=== PATIENT | male | born 1945 | race Caucasian/White ===

== ENCOUNTER 2021-05-06 12:36 | Emergency (ER) | payer MEDICARE, BC ==
[~2021-05-06] VITALS: Ht 185.5 cm; Wt 95.3 kg
--- NOTE | 2021-05-06 13:02 | ED General ---
General Chief Complaint: Cough/Cold/Flu Symptoms Stated Complaint: COVID+ Source of Information: Patient Exam Limitations: No Limitations History of Present Illness Date Seen by Provider: May 06, 2021 Time Seen by Provider: 13:00 Initial Comments To ER with reports that he is Covid positive. He became symptomatic on the and tested positive on the . is vaccinated she had a mild case and is over it. He is unvaccinated and feels generally poorly. No shortness of breath just general fatigue and body aches. Timing/Duration: 1 Week Severity: Moderate Associated Systoms: Denies Symptoms, Headaches, Nausea/Vomiting Allergies and Home Medications Patient Home Medication List Home Medication List Reviewed: Yes Review of Systems Review of Systems Constitutional: see HPI EENTM: see HPI Respiratory: no symptoms reported Cardiovascular: no symptoms reported Genitourinary: no symptoms reported Musculoskeletal: no symptoms reported Skin: no symptoms reported Psychiatric/Neurological: No Symptoms Reported Hematologic/Lymphatic: No Symptoms Reported Immunological/Allergic: no symptoms reported Physical Exam Vital Signs Vital Signs - First Documented 05/06/21 12:40 Temp 37.1 Pulse 87 Resp 20 B/P (MAP) 131/91 (104) Pulse Ox 96 O2 Delivery Room Air Capillary Refill : Height, Weight, BMI Height: '" Weight: lbs. oz. kg; BMI Method: General Appearance: No Apparent Distress, WD/WN, Other (Patient is 95 to 98% SPO2 on room air. Heart rate 89 respiratory rate 14 blood pressure 121/75. No distress) Eyes: Bilateral Eye Normal Inspection, Bilateral Eye PERRL, Bilateral Eye EOMI Neck: Full Range of Motion, Normal Inspection Respiratory: No Accessory Muscle Use, No Respiratory Distress Cardiovascular: Regular Rate, Rhythm, Normal Peripheral Pulses Gastrointestinal: Non Tender, Soft Extremity: Normal Capillary Refill, Normal Inspection Neurologic/Psychiatric: Alert, Oriented x3 Skin: Normal Color, Warm/Dry Progress/Results/Core Measures Suspected Sepsis SIRS Temperature: Pulse: Respiratory Rate: Laboratory Tests 05/06/21 12:47: White Blood Count 4.4 Blood Pressure / Mean: Laboratory Tests 05/06/21 12:47: Creatinine 0.99, Platelet Count 114L, Total Bilirubin 0.5 Results/Orders Lab Results Laboratory Tests Test 05/06/21 12:47 Range/Units White Blood Count 4.4 4.3-11.0 10^3/uL Red Blood Count 5.71 H 4.30-5.52 10^6/uL Hemoglobin 17.0 13.3-17.7 g/dL Hematocrit 50 40-54 % Mean Corpuscular Volume 88 80-99 fL Mean Corpuscular Hemoglobin 30 25-34 pg Mean Corpuscular Hemoglobin Concent 34 32-36 g/dL Red Cell Distribution Width 13.5 10.0-14.5 % Platelet Count 114 L 130-400 10^3/uL Mean Platelet Volume 11.4 9.0-12.2 fL Immature Granulocyte % (Auto) 0 % Neutrophils (%) (Auto) 73 42-75 % Lymphocytes (%) (Auto) 15 12-44 % Monocytes (%) (Auto) 11 0-12 % Eosinophils (%) (Auto) 0 0-10 % Basophils (%) (Auto) 0 0-10 % Neutrophils # (Auto) 3.2 1.8-7.8 10^3/uL Lymphocytes # (Auto) 0.7 L 1.0-4.0 10^3/uL Monocytes # (Auto) 0.5 0.0-1.0 10^3/uL Eosinophils # (Auto) 0.0 0.0-0.3 10^3/uL Basophils # (Auto) 0.0 0.0-0.1 10^3/uL Immature Granulocyte # (Auto) 0.0 0.0-0.1 10^3/uL Percent Immature Platelet Fraction 8.8 H 0.0-7.6 % D-Dimer 0.33 0.00-0.49 UG/ML Sodium Level 137 135-145 MMOL/L Potassium Level 4.4 3.6-5.0 MMOL/L Chloride Level 104 98-107 MMOL/L Carbon Dioxide Level 21 21-32 MMOL/L Anion Gap 12 5-14 MMOL/L Blood Urea Nitrogen 15 7-18 MG/DL Creatinine 0.99 0.60-1.30 MG/DL Estimat Glomerular Filtration Rate 74 BUN/Creatinine Ratio 15 Glucose Level 122 H 70-105 MG/DL Calcium Level 8.8 8.5-10.1 MG/DL Corrected Calcium 9.0 8.5-10.1 MG/DL Total Bilirubin 0.5 0.1-1.0 MG/DL Aspartate Amino Transf (AST/SGOT) 49 H 5-34 U/L Alanine Aminotransferase (ALT/SGPT) 71 H 0-55 U/L Alkaline Phosphatase 63 40-136 U/L C-Reactive Protein High Sensitivity 1.98 H 0.00-0.50 MG/DL Total Protein 6.7 6.4-8.2 GM/DL Albumin 3.7 3.2-4.5 GM/DL Procalcitonin 0.05 <0.10 NG/ML My Orders Orders - MOSHE CONDE APRN Chest 1 View, Ap/Pa Only (05/06/21 12:44) Fibrin Degradation Products (05/06/21 12:44) Hs C Reactive Protein (05/06/21 12:44) Procalcitonin (Pct) (05/06/21 12:44) Cbc With Automated Diff (05/06/21 12:44) Comprehensive Metabolic Panel (05/06/21 12:44) Vital Signs/I&O 05/06/21 05/06/21 12:40 12:40 Temp 37.1 Pulse 87 Resp 20 B/P (MAP) 131/91 (104) Pulse Ox 96 O2 Delivery Room Air Room Air Capillary Refill : Departure Communication (Admissions) I discussed with him the emergency use authorization of Regeneron and alternatives to treatment he would like to proceed with using it if possible. There is no staff scheduled to administer the infusion until the . This will put him outside of the window to receive it. He would certainly benefit from receiving it given his advanced age. As such I will give a here in the emergency room. Impression Primary Impression: COVID-19 Disposition: 01 HOME, SELF-CARE Condition: Stable Departure-Patient Inst. Decision time for Depature: 13:02 Patient Instructions: COVID-19 ED, REGEN-COV (casirivimab and imdevimab) FDA Fact Sheet Add. Discharge Instructions: 1. Scheduling department will call you with a time for your Regeneron infusion. Return to ER for any concerns. All discharge instructions reviewed with patient and/or family. Voiced understanding. MOSHE CONDE APRN May 06, 2021 13:02
[2021-05-06 13:03] LABS: HEMATOCRIT 50 % (40-54); LYMPHOCYTES # (AUTO) 0.7 10^3/uL (1.0-4.0); MEAN CORPUSCULAR HEMOGLOBIN 30 pg (25-34); MEAN CORPUSCULAR HGB CONC 34 g/dL (32-36); MEAN CORPUSCULAR VOLUME 88 fL (80-99); NEUTROPHILS # (AUTO) 3.2 10^3/uL (1.8-7.8)
[2021-05-06 13:05] LABS: BASOPHILS % (AUTO) 0 % (0-10); EOSINOPHILS % (AUTO) 0 % (0-10); LYMPHOCYTES % (AUTO) 15 % (12-44); MEAN PLATELET VOLUME 11.4 fL (9.0-12.2); MONOCYTES # (AUTO) 0.5 10^3/uL (0.0-1.0); MONOCYTES % (AUTO) 11 % (0-12); NEUTROPHILS % (AUTO) 73 % (42-75); PLATELET COUNT 114 10^3/uL (130-400); WHITE BLOOD COUNT 4.4 10^3/uL (4.3-11.0)
[2021-05-06 13:16] LABS: ALBUMIN 3.7 GM/DL (3.2-4.5); POTASSIUM 4.4 MMOL/L (3.6-5.0)
[2021-05-06 13:17] LABS: CALCIUM 8.8 MG/DL (8.5-10.1)
[2021-05-06 13:19] LABS: TOTAL PROTEIN 6.7 GM/DL (6.4-8.2)
[2021-05-06 13:20] LABS: BILIRUBIN,TOTAL 0.5 MG/DL (0.1-1.0)
[2021-05-06 13:22] LABS: CREATININE SERUM 0.99 MG/DL (0.60-1.30)
--- NOTE | 2021-05-06 13:26 | Diagnostic Imaging Report ---
Indication: Weakness and COVID 19 positive. No prior studies are available for comparison. The heart size is normal. There is some questionable patchy infiltrate in the right base and along the periphery of the right mid and upper lung field. This could represent COVID 19 pneumonia. Left lung appears to be fairly clear apart from questionable minimal infiltrate in the region of the costophrenic angle. There is no effusion. No pneumothorax is seen. Pulmonary vascularity is normal. IMPRESSION: Bilateral patchy pulmonary infiltrates suggestive of pneumonia. Report was faxed to [facility] by loretta at 1:25PM. Dictated by: Dictated on workstation # [id number]
[2021-05-06 14:05] VITALS: BP 124/85
== END 2021-05-06 14:05 | disposition home or self-care (01) ==
LOC: ER 12:38
DX: U07.1 COVID-19 (principal)
CPT/HCPCS: 36415; 71045; 80053; 84145; 85025; 85379; 86141

== ENCOUNTER 2021-05-06 14:11 | Outpatient (CLI) | payer MEDICARE, BC ==
[~2021-05-06] VITALS: Ht 185 cm; Wt 95.0 kg
[2021-05-06] MEDS ORDERED: EPINEPHrine INJECTION 1 MG/ML AMP IM PRN (14:30)
[2021-05-06] MEDS ORDERED: CASIRIVIMAB/IMDEVIMAB 1,200 MG in NS (IVPB) 250 ML IV ONE (14:30)
[2021-05-06] MEDS ORDERED: diphenhydrAMINE 50 MG/ML INJ (BENADRYL) IV PRN (14:30)
[2021-05-06 14:42] VITALS: BP 124/85
[2021-05-06 15:35] VITALS: BP 121/71
== END 2021-05-06 16:30 | disposition home or self-care (01) ==
LOC: INFUSION 14:11
PROVIDERS: ATTEND Nurse Practitioner Family
DX: Z23 Encounter for immunization (principal); U07.1 COVID-19